=== PATIENT | female | born 1990 | race Caucasian/White ===

== ENCOUNTER 2019-12-31 09:58 | Day surgery (SDC) | payer OTHER, SELFPAY ==
[2019-12-24 17:21] LABS: BASOPHILS % (AUTO) 0.3 % (0-1); EOSINOPHILS # (AUTO) 0.1 X10'3 (0-0.9); EOSINOPHILS % (AUTO) 2.6 % (0-6); LYMPHOCYTES # (AUTO) 1.8 X10'3 (1.1-4.8); LYMPHOCYTES % (AUTO) 34.5 % (21-51); MEAN CORPUSCULAR HEMOGLOBIN 29.4 PG (27.0-31.0); MEAN CORPUSCULAR HGB CONC 34.1 g/dL (33.0-36.5); MEAN CORPUSCULAR VOLUME 86.1 FL (78-98); MEAN PLATELET VOLUME 6.9 FL (7.4-10.4); MONOCYTES # (AUTO) 0.3 X10'3 (0-0.9); MONOCYTES % (AUTO) 5.1 % (2-12); NEUTROPHILS % (AUTO) 57.5 % (42-75); PRE OP HEMOGLOBIN 13.3 g/dL (12.0-16.0); PRE OP PLATELET COUNT 168 X10'3 (140-440); RED BLOOD COUNT 4.52 X10'6 (4.20-5.60); RED CELL DISTRIBUTION WIDTH 13.4 % (11.5-14.5)
[2019-12-24 17:26] LABS: ALBUMIN 3.9 G/DL (3.4-5.0); ALBUMIN/GLOBULIN RATIO 1.1 (1.1-1.5); ALKALINE PHOSPHATASE 66 IU/L (46-116); BLOOD UREA NITROGEN 15 MG/DL (7-18); BUN/CREATININE RATIO 22.4 (6.6-38.0); CALCIUM 9.1 MG/DL (8.5-10.1); CHLORIDE 106 MMOL/L (99-107); CREATININE 0.67 MG/DL (0.40-0.90); HCG SERUM QL NEGATIVE; PRE OP ALT 20 U/L (30-65); PRE OP ANION GAP 6 (8-16); PRE OP AST 17 U/L (10-37); PRE OP BILIRUB, TOTAL 0.4 MG/DL (0.0-1.0); PRE OP GLUCOSE 88 MG/DL (70-104); PRE OP POTASSIUM 3.9 MMOL/L (3.4-5.1); PRE OP SODIUM 143 MMOL/L (135-145); TOTAL CARBON DIOXIDE 31.5 MMOL/L (24-32); TOTAL PROTEIN 7.4 G/DL (6.4-8.2); eGFR > 90 ML/MIN
[2019-12-24 17:27] LABS: CLARITY,URINE CLEAR (Clear); COLOR,URINE STRAW (Yellow); GLUCOSE, URINE NEGATIVE (Neg); KETONES,URINE NEGATIVE (Neg); LEUKOCYTE ESTERASE ,URINE NEGATIVE (Neg); NITRITES, URINE NEGATIVE (Neg); OCCULT BLOOD,URINE NEGATIVE (Neg); PROTEIN,URINE NEGATIVE (Neg); UROBILINOGEN,URINE 0.2 E.U/dL (0.2-1.0)
[2019-12-24 17:30] LABS: UA COLLECTION TYPE CLN CATCH MIDSTREAM
[2019-12-31] VITALS (15 sets, daily range): BP systolic 100–125; BP diastolic 45–70
[~2019-12-31] VITALS: Ht 157.5 cm; Wt 88.0 kg
[~2019-12-31 09:58] MED LIST: ERGO400C PO; PNV1TABL87 PO; ceFOXitin 1 GM/D5W 50mL IVPB 50 ML IV ONE; famotidine 20mg tablet PO ONE; ringers solution, lacted 1,000 ML IV SCH
[2019-12-31] MEDS ORDERED: BUPIVAcaine/PF 2.5 mg/ml (0.25%) 30ml vial ONE (12:32)
[2019-12-31] MEDS ORDERED: sevoflurane 250ml liquid IH ONE (12:34)
[2019-12-31] MEDS ORDERED: fentaNYL/PF 50MCG/1 ML 2ML syringe ONE ×2 (12:37)
[2019-12-31] MEDS ORDERED: midazolam 2 mg/2 ml injection ONE (12:38)
[2019-12-31] MEDS ORDERED: rocuronium 10mg/ml inj IV ONE (12:40)
[2019-12-31] MEDS ORDERED: propofol inj 20 ML IV ONE (12:40)
[2019-12-31] MEDS ORDERED: ceFAZolin 1000mg inj ONE (12:43)
[2019-12-31] MEDS ORDERED: ondansetron/PF 4mg/2ml inj ONE (12:56)
[2019-12-31] MEDS ORDERED: dexamethasone sod phosphate 4mg/ml inj. ONE (13:09)
[2019-12-31] MEDS ORDERED: neostigmine methylsulfate 1 MG/ML 10ml vial ONE (13:24)
[2019-12-31] MEDS ORDERED: glycopyrrolate 0.2mg/ml inj ONE (13:25)
--- NOTE | 2019-12-31 13:40 | NUR ---
Received from OR via [facility], accompanied by Anesthesiologist DR GOODWIN and report given by Anesthesiologist. PT DROWSY, PAINFUL, ABDOMEN W/4 LAP SITES W/BANDAIDS CDI. Addendum: 12/31/19 at 1429 by Tiarra Foster RN Amended: Links added.
[2019-12-31] MEDS ORDERED: meperidine/PF 25mg/ml syringe ONE ×3 (13:43→14:08)
[2019-12-31] MEDS ORDERED: morphine 2 MG/ML inj. syringe IV PRN (14:15)
[2019-12-31] MEDS ORDERED: morphine 4 MG/ML inj SYRINge IV PRN (14:15)
[2019-12-31] MEDS ORDERED: acetaminophen 1,000mg/100ml IV 100 ML IV PRN (14:15)
[2019-12-31] MEDS ORDERED: ketorolac trometh. 30mg/ml inj. IV ONE (14:15)
[2019-12-31] MEDS ORDERED: meperidine/PF 25mg/ml syringe IV PRN ×3 (14:15)
[2019-12-31] MEDS ORDERED: ondansetron/PF 4mg/2ml inj IV PRN (14:15)
[2019-12-31] MEDS ORDERED: ringers solution, lacted 1,000 ML IV SCH (14:15)
[2019-12-31] MEDS ORDERED: HYDROcodone/acetaminophen 5mg/325mg tablet PO ONE (16:35)
--- NOTE | 2019-12-31 16:50 | NUR ---
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 Addendum: 12/31/19 at 1704 by Tiarra Foster RN Amended: Links added.
== END 2019-12-31 16:50 | disposition home or self-care (01) ==
LOC: PAS 09:58
PROVIDERS: ATTEND Surgery
DX: K80.10 Calculus of gallbladder with chronic cholecystitis without obstruction (principal); G43.909 Migraine, unspecified, not intractable, without status migrainosus; F41.9 Anxiety disorder, unspecified; E66.9 Obesity, unspecified; Z68.35 Body mass index [BMI] 35.0-35.9, adult; Z79.899 Other long term (current) drug therapy; Z98.890 Other specified postprocedural states; Z82.49 Family history of ischemic heart disease and other diseases of the circulatory system; Z83.3 Family history of diabetes mellitus
CPT/HCPCS: 36415; 47562; 80053; 81003; 82948; 84703; 85025; J0690; J0694; J1100; J1885; J2175; J2250; J2405; J2704; J2710; J3010; J3490; J7120; U0003; A4215; A4618; A7000